=== PATIENT | male | born 1945 | race Caucasian/White ===

== ENCOUNTER 2024-07-13 17:33 | Emergency (ER) | payer OTHER, MEDICARE, SELFPAY ==
[2024-07-13 17:39] VITALS: BP 156/81; PULSE 80; RESP 14; TEMP 36.6; O2SAT 95; BMI 26.6
[2024-07-13] MEDS: OXYMETAZOLINE NASAL SPRAY 30 ML 2 SPRAYS NASAL (18:00)
--- NOTE | 2024-07-13 18:04 | PC.NURSE ---
Pt states that his nose started to bleed after he was picking it.
--- NOTE | 2024-07-13 18:23 | ED.EPISTAXIS ---
HPI - Epistaxis General Chief complaint: Nasal Problem Stated complaint: nose bleed Time Seen by Provider: 07/13/24 17:50 Source: patient Mode of arrival: Ambulatory History of Present Illness HPI Narrative: 79-year-old male with history of atrial fibrillation on Eliquis presents by private vehicle from home for nosebleed. Patient states that ever since approximately 10 30 this morning he has had a slow drip from his nose that he has not been able to control. Reports remote history of sinus surgery in his 40s, denies other history nasal or sinus problems. He says incidentally during a PCP follow appointment several years ago he was told that he had a hole in his septum, but it was not causing him issues and so he never saw a specialist about this finding. Patient was from [place], he was in town for several weeks to dog sit while his friend goes traveling. Related Data Previous Rx's Medication Instructions Recorded diazepam 2 mg tablet 2 mg PO BEDTIME PRN sleep #10 tabs 07/13/24 Allergies Allergy/AdvReac Type Severity Reaction Status Date / Time No Known Drug Allergies Allergy Verified 07/13/24 17:39 Patient History Social History Smoking Status: Unknown if ever smoked Smoking Status: Unknown if ever smoked alcohol intake frequency: holidays/special occasions only Substance Use Type: does not use Exam Initial Vital Signs Initial Vital Signs: Vital Signs Temperature 97.8 F 07/13/24 17:39 Pulse Rate 80 07/13/24 17:39 Respiratory Rate 14 07/13/24 17:39 Blood Pressure 156/81 H 07/13/24 17:39 Pulse Oximetry 95 07/13/24 17:39 Oxygen Delivery Method Room Air 07/13/24 17:39 Const: Awake, alert, no acute distress, nontoxic appearing HEENT: bright blood in R nare, some dripping coming from L nare Cardiac: regular rate, regular rhythm RESP: unlabored, clear bilaterally, no wheezing GI: Soft, nontender, nondistended, no rebound, no guarding MSK: Atraumatic, full range of motion, pulses equal Skin: Warm, Dry, intact, no rashes Neuro: AO x3, CN II-XII grossly intact, moves all extremities Course Orders Ordered: Discontinued Medications Diazepam (Diazepam 2 Mg Tablet) 4 mg PO NOW ONE Stop: 07/13/24 21:27 Last Admin: 07/13/24 21:36 Dose: 4 mg Documented By: Oxymetazoline HCl (Oxymetazoline Nasal [place] 30 Ml) 2 sprays NASAL NOW ONE Stop: 07/13/24 17:51 Last Admin: 07/13/24 18:00 Dose: 2 sprays Documented By: DACIA Vital Signs Vital signs: Vital Signs - 8 hr 07/13/24 17:39 07/13/24 20:18 07/13/24 21:26 Temperature 97.8 F Pulse Rate 80 89 85 Respiratory Rate 14 16 18 Blood Pressure 156/81 H 174/101 H 171/105 H Pulse Oximetry 95 95 98 Oxygen Delivery Method Room Air Room Air Room Air 07/13/24 21:34 Temperature Pulse Rate 78 Respiratory Rate 18 Blood Pressure 179/92 H Pulse Oximetry 96 Oxygen Delivery Method Room Air MDM - Epistaxis Differential Diagnosis Differential diagnosis: Likely nasal bone fracture, anterior epistaxis and posterior epistaxis MDM Narrative Medical decision making narrative: patient with nosebleed. Unable to be controlled with clamps or Afrin. Patient consented to anterior nasal packing. 5.5 cm rhino rocket inserted into right naris. The majority of the bleeding was controlled, however he continued to have very very slight spotting from his left nares. what did appear to be a smal hole in the septum between the left and right nares was present, Which is where the bleeding was coming from. Case discussed with on-call ENT physician Dr. Han, who recommended bilateral packing. He recommended packing in place for 5 days and expedited clinic follow up. Patient consented to the application of left rhino rocket and 5.5 cm nasal packing inserted. Bleeding stopped. Patient counseled on ENT recommendations and he was given the number for the local clinic. He was given a short course of Valium to help sleep at night while packing in place. Strict ED return precautions discussed. Discharge Plan Departure Patient Disposition: Home Clinical Impression: Epistaxis Instructions: DI for Nosebleed Activity Restrictions/Additional Instructions: keep the packing in place for 3-5 days until seeing ENT. Call 1st thing tomorrow morning for an appointment. The medications prescribed can help you sleep at night. Do not take this medication before driving or take it with alcohol as it can increase risk of falls and drowsiness. Prescriptions: New diazepam 2 mg tablet 2 mg PO BEDTIME PRN (Reason: sleep) Qty: 10 0RF Rx Instructions: take 1-2 tablets at night to help sleep Referrals: Agus Han MD [Physician] - Miscellaneous,MD Torri [Primary Care Provider] - Stand Alone Forms: Patient Portal/API/Survey
[2024-07-13 20:18] VITALS: BP 174/101; PULSE 89; RESP 16; O2SAT 95
[2024-07-13 21:26] VITALS: BP 171/105; PULSE 85; RESP 18; O2SAT 98
[2024-07-13 21:34] VITALS: BP 179/92; PULSE 78; RESP 18; O2SAT 96
[2024-07-13] MEDS: diazePAM 2 MG TABLET 4 MG PO (21:36)
== END 2024-07-13 21:40 | disposition home or self-care (01) ==
PROVIDERS: Emergency Provider Emergency Medicine
DX: R04.0 Epistaxis (principal)
CPT/HCPCS: 99283